=== PATIENT | female | born 1960 | race Caucasian/White ===

== ENCOUNTER 2022-12-28 11:03 | Inpatient (IN) | payer OTHER ==
[~2022-12-28] VITALS: Ht 160 cm; Wt 59.1 kg
[2022-12-28 11:38] LABS: BASOPHILS ABSOLUTE AUTO 0.05 K/mm3 (0.00-0.23); BASOPHILS PERCENT AUTO 0 % (0-2); EOSINOPHILS ABSOLUTE AUTO 0.04 K/mm3 (0.00-0.68); EOSINOPHILS PERCENT AUTO 0 % (0-6); Hematocrit 51.6 % (33.0-51.0); Hemoglobin 16.8 g/dL (11.5-16.0); IMMATURE GRAN ABSOLUTE AUTO 0.09 K/mm3 (0.00-0.10); IMMATURE GRAN PERCENT AUTO 1 % (0-1); LYMPHOCYTES ABSOLUTE AUTO 1.41 K/mm3 (0.84-5.20); LYMPHOCYTES PERCENT AUTO 9 % (21-46); MONOCYTES ABSOLUTE AUTO 1.96 K/mm3 (0.16-1.47); MONOCYTES PERCENT AUTO 12 % (4-13); Mean Corpuscular HGB Conc 32.6 g/dL (31.5-36.5); Mean Corpuscular Volume 89 fL (80-100); Mean Platelet Volume 9.1 fL (9.1-12.4); NEUTROPHILS ABSOLUTE AUTO 12.87 K/mm3 (1.96-9.15); NEUTROPHILS PERCENT AUTO 79 % (41-73); Platelet Count 308 K/mm3 (150-400); RDW Coefficient Variation 13.2 % (11.7-14.2); RDW Standard Deviation 42.8 fL (35.1-46.3); Red Blood Cell Count 5.79 M/mm3 (3.80-5.20); White Blood Cell Count 16.42 K/mm3 (4.00-11.30)
[2022-12-28 11:50] LABS: Albumin, Blood 3.5 g/dL (3.4-5.0); Bilirubin, Total 0.4 mg/dL (0.1-1.0); Bun/Creatinine Ratio 44.6 (12.0-20.0); Creatinine, Blood 0.43 mg/dL (0.40-1.00); Globulin, Blood 3.4 g/dL (2.2-4.0); Potassium, Blood 5.1 mmol/L (3.5-5.5); Total Protein, Blood 6.9 g/dL (6.4-8.2)
[2022-12-28 12:48] LABS: Influenza A, PCR NEGATIVE (NEGATIVE); Influenza B, PCR NEGATIVE (NEGATIVE); Resp Syncytial Virus, PCR NEGATIVE (NEGATIVE); SARS-Cov-2 (COVID-19) PCR, MMC NEGATIVE (NEGATIVE)
[2022-12-28 18:37] LABS: CPK Creatine Kinase 94 U/L (26-193)
--- NOTE | 2022-12-28 21:37 | NUR ---
CALLED PHARMACY I INFORMED PHARMACY THAT THE LOVENOX SHOT WAS NOT GIVEN BY ER OR PREVIOUS SHIFT. I DID INFORM THEM THAT THERE IS ANOTHER LOVENOX SHOT SCHEDULED FOR 0900 HOURS. I ASKED IF IT WAS STILL SAFE TO ADMINISTER THE LOVENOX SHOT AT THIS TIME. THEY RESPONDED THAT IT WAS SAFE AND I SHOULD ADMINISTER THE SHOT.
[2022-12-29 02:28] LABS: BASOPHILS ABSOLUTE AUTO 0.01 K/mm3 (0.00-0.23); BASOPHILS PERCENT AUTO 0 % (0-2); EOSINOPHILS PERCENT AUTO 0 % (0-6); Hematocrit 45.7 % (33.0-51.0); Hemoglobin 15.1 g/dL (11.5-16.0); IMMATURE GRAN ABSOLUTE AUTO 0.05 K/mm3 (0.00-0.10); IMMATURE GRAN PERCENT AUTO 1 % (0-1); LYMPHOCYTES ABSOLUTE AUTO 0.52 K/mm3 (0.84-5.20); LYMPHOCYTES PERCENT AUTO 6 % (21-46); MONOCYTES ABSOLUTE AUTO 1.18 K/mm3 (0.16-1.47); MONOCYTES PERCENT AUTO 14 % (4-13); Mean Corpuscular HGB 29.3 pg (26.0-34.0); Mean Corpuscular Volume 89 fL (80-100); NEUTROPHILS ABSOLUTE AUTO 6.63 K/mm3 (1.96-9.15); NEUTROPHILS PERCENT AUTO 79 % (41-73); Platelet Count 274 K/mm3 (150-400); RDW Coefficient Variation 13.1 % (11.7-14.2); RDW Standard Deviation 42.6 fL (35.1-46.3); Red Blood Cell Count 5.16 M/mm3 (3.80-5.20); White Blood Cell Count 8.39 K/mm3 (4.00-11.30)
[2022-12-29 02:45] LABS: Albumin, Blood 2.9 g/dL (3.4-5.0); Bilirubin, Total 0.3 mg/dL (0.1-1.0); Bun/Creatinine Ratio 40.2 (12.0-20.0); Calcium, Blood 8.4 mg/dL (8.5-10.1); Creatinine, Blood 0.45 mg/dL (0.40-1.00); Potassium, Blood 4.6 mmol/L (3.5-5.5); Total Protein, Blood 5.9 g/dL (6.4-8.2)
--- NOTE | 2022-12-29 04:26 | NUR ---
SHIFT SUMMARY ADMITTED FROM ER ON PREVIOUS SHIFT FOR POSSIBLE CHF/COPD EXACERBATION. FULL CODE. PLAN IS TO [facility] AND RT TX'S ARE SCHEDULED. MONITORING LABS. TELEMETRY: TACHY @ 105 BPM. SHE HAS NOT SOUGHT MEDICAL CARE OF ANY KIND IN TEN YEARS REPORTEDLY, MEDICAL HX IS UNKNOWN. OUTPT DERMATOLOGY PLANNED FOR INVESTIGATION OF SKIN MOLES/MASSES. STANDBY ASSIST TO BSC
--- NOTE | 2022-12-29 13:13 | NUR ---
Patient is sitting on a chair and alert. She tells me about her medical issues and the plan moving forward. She shares about her depression, struggles with fears and self-hatred. We explore sources of value, meaning and purpose. We talk about her Yazidism willie, her family support (out of state) and her need for more positive imput for her life and health. She tells me her desire to stop smoking and her plan to work on this. I normalize her feelings, reinforce helpful attitudes and practices and provide therapeutic listening, gentle enrollment counselor and prayer. Patient responds well and shows signs of an elevated mood and catharsis. I will continue to remain available to patient and family.
--- NOTE | 2022-12-29 17:25 | NUR ---
SHIFT SUMMARY PATIENT DENIES PAIN, NAUSEA, AND SHORTNESS OF BREATH WITH REST. PATIENT REPORTS SHORTNESS OF BREATH WITH ACTIVITY. PATIENT WAS ON 2L, SATURATING AT 99%. ATTEMPTED TO WEAN PATIENT, SATURATIONS ON RA WERE 82%, PATIENT INCREASED TO 1L, SATURATIONS 94%. PATIENT CURRENTLY ON 1L VIA N/C. PATIENT WORKED WITH PT TODAY. PATIENT ALSO WORKED WITH ST, RECOMMENDING MEDS CRUSHED IN APPLESAUCE DUE TO PATIENT INABILITY TO SWALLOW PILLS. PATIENT REPORTS THIS HAS BEEN AN ISSUE HER WHOLE LIFE. PATIENT IS EATING AND DRINKING WELL. DIET CHANGED TO BITE SIZE DUE TO BOTTOM DENTURES NOT BEING WITH HER. ECHO COMPLETE, AWAITING RESULTS. PATIENT IS PLEASANT AND COOPERATIVE WITH CARE.
--- NOTE | 2022-12-30 04:47 | NUR ---
SHIFT SUMMARY 62 YR F ADMITTED ON 12/28/22 FOR CHF/PNA. FULL CODE. NO ACUTE CHANGES THIS SHIFT. PT CALLS APPROPRIATELY FOR ASSISTANCE BUT APPEARS TO BE CONFUSED AT TIMES AND PARANOID ABOUT HER TELE WIRES AND OXYGEN TUBING. SHE IS VERY CAUTIOUS OF TUBES AND WIRING AND IS RELUCTANT TO GET UP FOR FEAR OF "MESSING THEM UP".
[2022-12-30 04:52] LABS: BASOPHILS ABSOLUTE AUTO 0.02 K/mm3 (0.00-0.23); BASOPHILS PERCENT AUTO 0 % (0-2); EOSINOPHILS PERCENT AUTO 1 % (0-6); Hematocrit 46.1 % (33.0-51.0); IMMATURE GRAN ABSOLUTE AUTO 0.05 K/mm3 (0.00-0.10); IMMATURE GRAN PERCENT AUTO 0 % (0-1); LYMPHOCYTES ABSOLUTE AUTO 1.47 K/mm3 (0.84-5.20); LYMPHOCYTES PERCENT AUTO 12 % (21-46); MONOCYTES ABSOLUTE AUTO 1.87 K/mm3 (0.16-1.47); MONOCYTES PERCENT AUTO 16 % (4-13); Mean Corpuscular HGB Conc 32.5 g/dL (31.5-36.5); Mean Corpuscular Volume 89 fL (80-100); Mean Platelet Volume 9.2 fL (9.1-12.4); NEUTROPHILS PERCENT AUTO 70 % (41-73); Platelet Count 268 K/mm3 (150-400); RDW Coefficient Variation 12.9 % (11.7-14.2); RDW Standard Deviation 42.3 fL (35.1-46.3); Red Blood Cell Count 5.17 M/mm3 (3.80-5.20); White Blood Cell Count 11.81 K/mm3 (4.00-11.30)
[2022-12-30 05:18] LABS: Calcium, Blood 8.2 mg/dL (8.5-10.1); Creatinine, Blood 0.46 mg/dL (0.40-1.00); Potassium, Blood 4.3 mmol/L (3.5-5.5)
--- NOTE | 2022-12-30 18:02 | NUR ---
SHIFT SUMMARY: C/O PAIN IN L HIP, RADIATING TO LOW BACK; MEDICATED WITH TYLENOL AND PATIENT WAS ABLE TO SLEEP. VERY ANXIOUS ABOUT EVERYTHING. WEARING O2 @ 1 L/MIN NC. GETTING UP TO BSC WITH MOD ASSIST. ENDORSES BEING CONFUSED ABOUT DIAGNOSES AND NEEDING HELP WITH FINDING PCP AND APPLYING FOR A.
--- NOTE | 2022-12-31 04:24 | NUR ---
SHIFT SUMMARY; NO ACUTE CHANGES OVERNIGHT. THE PT IS AXO X3 AND IS CONFUSED AT TIMES, THE PT IS ANXIOUS ABOUT CARE OFTEN, REQUIRED DIRECTION FREQUENTLY. THE PT IS A 1 ASSIST TO THE BSC. TELE IS IN PLACE, NSR 70-80'S. THE PT IS ON 1-2L NC TO MAINTAIN O2 SATS GREATER THAN 92%. THE PT REQUESTED PRN PAIN MEDICATION ONCE LAST SHIFT FOR LEFT HIP PAIN. CURRENTLY THE PT IS RESTING IN BED WITH THE BED IN THE LOWEST POSITION AND THE CALL LIGHT AT BEDSIDE.
[2022-12-31 06:01] LABS: Bun/Creatinine Ratio 30.3 (12.0-20.0); Calcium, Blood 8.5 mg/dL (8.5-10.1); Creatinine, Blood 0.4 mg/dL (0.40-1.00); Potassium, Blood 4.3 mmol/L (3.5-5.5)
--- NOTE | 2022-12-31 17:47 | NUR ---
SHIFT SUMMARY PT 1 PERSON ASSIST UP TO BSC OR BATHROOM USING FWW. NEEDED REMINDING TO USE CALL BUTTON AND WAIT FOR HELP. CAN BE ANXIOUS DUE TO LL BACK DISCOMFORT WHICH SHE REPORTS IS FROM SCIATIC NERVE. ICE APPLIED OCCASIONALLY FOR COMFORT. ADJUSTED INDEPENDENTLY IN BED. SITTING IN CHAIR FOR MEALS. ENCOURAGED TO KEEP ICE NEARBY FOR KEEP HER MOUTH MOIST.
--- NOTE | 2023-01-01 05:31 | NUR ---
PATIENT IS ALERT AND ORIENTED X4, SOME CONFUSION WHEN ANXIETY INCREASES, BUT SUBSIDES WHEN RELAXED. 3L NC, PRODUCTIVE COUGH, SOB WHEN UP TO BSC, 1X WITH FWW AND CONTACT GUARD. LLE EDEMA 3+, RLE 1-2+, TELE SR, HTN TREATED WITH NEW PRNS AND CARDIAC MEDS ADDED TO JAN. IV SL. NO OTHER ISSUES TO REPORT.
[2023-01-01 05:46] LABS: Bun/Creatinine Ratio 25.1 (12.0-20.0); Calcium, Blood 8.2 mg/dL (8.5-10.1); Creatinine, Blood 0.36 mg/dL (0.40-1.00); Potassium, Blood 4.4 mmol/L (3.5-5.5)
--- NOTE | 2023-01-01 18:02 | NUR ---
SHIFT SUMMARY NO ACUTE CHANGES DURING SHIFT. PT ALERT AND ORIENTED, CALLS APPROPRIATELY. PT PLACED ON 1.5L FLUID RESTRICTION TODAY, PT AWARE. PT DOWN TO 2L NC, ATTEMPTED RA, PT BECAME SOB AND ANXIOUS, WILL KEEP AT 2L FOR NOW. PT X 1 ASSIST FWW AND GAIT BELT TO BATHROOM. BLE EDEMA STILL PRESENT, PO LASIX STARTED. WILL CONTINUE TO MONITOR. CALL LIGHT WITHIN REACH.
--- NOTE | 2023-01-02 06:25 | NUR ---
PATIENT SLEPT FOR SOME OF THE NIGHT, WAKING TO CONFUSION, BUT OTHERSISE RIORIENTS X4. PATIENT CONT TO GET ANXIETY THROUGHIUT THE NIGHT AND STATES SHE JUST NEEDS SOMEONE TO LISTEN TO HER CALMLY. SHE HAS AN ELDERLY MOTHER AT HOME WHICH SHE CARES FOR. NO HTN PRNS NEEDED THIS SHIFT. 2L NC CONTINUED FOR COMFORT AND ANXIETY. EDEMA TO BLE REDUCING SOME. 1X ASSIST WITH FWW TO BSC, GAIT BELT WHEN UP TO BATHROOM. INC/CONT OF URIN. BLAIR BM THIS SHIFT. TELE SR. WILL CONT TO MONITOR.
[2023-01-02 06:35] LABS: Bun/Creatinine Ratio 19.9 (12.0-20.0); Calcium, Blood 8.7 mg/dL (8.5-10.1); Creatinine, Blood 0.35 mg/dL (0.40-1.00); Potassium, Blood 4.5 mmol/L (3.5-5.5)
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
--- NOTE | 2023-01-03 06:02 | NUR ---
HOP STRAINER SUMMARY PT AFFECT REMAINS PERSISTANTLY ANXIOUS/FLAT, EVEN DURING PERIODS OF REST. PT STARTED BEGINNING OF SHIFT ON 2L O2 NC; PERIOD OF SOB; PT UNABLE TO BREATHE THROUGH NOSE. MOVED NC T/MOUTH AND BUMPED UP TO 4L; CALLED RT T/BEDSIDE; PT RCVD TREATMENT. PT REMAINS ON 4L O2. PT 1PA T/BSC. NEW IV PLACED IN LEFT FOREARM. LUNG SOUNDS TIGHT W/EXP WHEEZING. ENCOURAGED PT TO MAKE NEEDS KNOWN AND USE CALL LIGHT; PT EXPRESSED FEAR OF USING CALL LIGHT T/NOT DISRUPT STAFF. CALL LIGHT ACCESSIBLE.
--- NOTE | 2023-01-03 14:49 | NUR ---
DIET CHANGED TO [facility] SOFT/GRD MEAT PER PATIENT REQUEST. INCLUDED FLUID RESTRICTION AND CARDIAC/HEART HEALTH.
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
--- NOTE | 2023-01-03 18:26 | NUR ---
SHIFT SUMMARY: APPEARS DEPRESSED, HAS BEEN WITHDRAWN AND STATED SHE FEELS OVERWHELMED "BY EVERYTHING." STARTED ON CITALOPRAM THIS MORNING. PLACED A PALLIATIVE CARE CONSULT FOR POLST AND/OR ADVANCED DIRECTIVE, WAS SEEN BY Saleem FLORES RN AND PT APPRECIATED HER VISIT. ENCOURAGED HER TO GET OOB, WALK TO BR INSTEAD OF USING BSC, IN CHAIR FOR MEALS. SHE IS UNMOTIVATED AND UNWILLING TO DO THESE THINGS DESPITE EDUCATION THAT SHE WILL CONTINUE TO GET WEAKER BY STAYING IN BED. IF DISCHARGED HOME, THIS AUTHOR FEELS THAT SHE WILL BE RE-ADMITTED TO THE HOSPITAL VERY SHORTLY AFTER. MEDICATED WITH TYLENOL FOR HER BACK PAIN. ON O2 @ 2-4 L/MIN NC. HOME O2 CONSULT COMPLETED ON 01/02/23.
[2023-01-04 02:17] LABS: Source, Urine Voided
[2023-01-04 02:20] LABS: Bilirubin, Urine Neg (Neg); Blood, Urine Neg (Neg); Glucose Qualitative, Urine Neg (Neg); Ketones, Urine 1+ (Neg); Leukocyte Esterase, Urine 1+ (Neg); Nitrite, Urine Neg (Neg); Protein, Urine Neg (Neg); Urobilinogen, Urine NORM (Normal)
[2023-01-04 02:42] LABS: Appearance, Urine Hazy (Clear); Color, Urine Yellow (P-Yellow)
[2023-01-04 02:43] LABS: Amorphous Mod (0-Heavy); Bacteria Few /hpf; Red Blood Cells, Urine Not Seen /hpf (0-2); Squamous Epithelial Cells Mod /hpf (Few)
--- NOTE | 2023-01-04 05:29 | NUR ---
CONSTRUCTION CARPENTER SUMMARY PT CONT TO APPEAR ANXIOUS AND WITHDRAWN. ON 4L 02 NC. DESAT WHEN UP TO BSC. RT AT BEDSIDE F/BREATHING TREATMENT. PT SHOWING INCREASING CONFUSION THIS SHIFT. CALLED THIS RN TO BEDSIDE; PT STATED SHE HEARS PEOPLE TALKING ABOUT "CUTTING HER THROAT" AND "[place] IS COMING FOR HER." ATTEMPT TO REORIENT PT AND SHE STATED "I KNOW WHAT I HEARD"; ALSO SAYING SHE NEEDS TO CALL SOMEONE. PT MADE CALL TO FAMILY MEMBER "JOELLEN" ON PERSONAL CELL PHONE. CALL TO ; ORDER FOR AM LABS, URINE SAMPLE, AND 5MG IM ZYPREZA ONE TIME. PT TOLERATED IM INJECTION WELL AND SLEPT FOR A FEW HOURS. UPON WAKING PT STILL ANXIOUS BUT COOPERATIVE WITH CARE. PT AGREEABLE TO TAKING A SHOWER. PT HAD 900ML URINE, THEN SUBSEQUENT 700ML URINE OUTPUT. WILL CONT TO MONITOR. CALL LIGHT ACCESSIBLE.
[2023-01-04 07:12] LABS: BASOPHILS ABSOLUTE AUTO 0.06 K/mm3 (0.00-0.23); BASOPHILS PERCENT AUTO 1 % (0-2); EOSINOPHILS ABSOLUTE AUTO 0.15 K/mm3 (0.00-0.68); EOSINOPHILS PERCENT AUTO 1 % (0-6); Hematocrit 46.9 % (33.0-51.0); Hemoglobin 15.1 g/dL (11.5-16.0); IMMATURE GRAN ABSOLUTE AUTO 0.04 K/mm3 (0.00-0.10); IMMATURE GRAN PERCENT AUTO 0 % (0-1); LYMPHOCYTES PERCENT AUTO 11 % (21-46); MONOCYTES ABSOLUTE AUTO 1.27 K/mm3 (0.16-1.47); MONOCYTES PERCENT AUTO 12 % (4-13); Mean Corpuscular HGB 28.8 pg (26.0-34.0); Mean Corpuscular HGB Conc 32.2 g/dL (31.5-36.5); Mean Corpuscular Volume 90 fL (80-100); NEUTROPHILS ABSOLUTE AUTO 7.92 K/mm3 (1.96-9.15); NEUTROPHILS PERCENT AUTO 74 % (41-73); Platelet Count 242 K/mm3 (150-400); RDW Standard Deviation 42.5 fL (35.1-46.3); Red Blood Cell Count 5.24 M/mm3 (3.80-5.20); White Blood Cell Count 10.64 K/mm3 (4.00-11.30)
[2023-01-04 07:50] LABS: Bun/Creatinine Ratio 19.4 (12.0-20.0); Calcium, Blood 8.7 mg/dL (8.5-10.1); Creatinine, Blood 0.41 mg/dL (0.40-1.00); Potassium, Blood 4.1 mmol/L (3.5-5.5)
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
--- NOTE | 2023-01-04 19:35 | NUR ---
SHIFT SUMMARY: PT A/O X 4, STANDBY ASSIST WITH WALKER AND GB. PT ON 4 LPM VIA NC. PLEASANT AND COOPERATIVE WITH CARE. PT HAD NO REPORTS OF PAIN. PT BLOOD PRESSURE IN THE 100'S THIS EVENING AND ASYMPTOMATIC. PT UNABLE TO SWALLOW MEDICATIONS THAT CANNOT BE CRUSHED AND CHEWED THEM. DR. FLORES CHANGED TO CRUSHABLE FORM. PT REPORTED SHE WOULD NEED A BSC, WALKER AND OXYGEN FOR HOME IF DISCHARGED HOME. PT HAS FAMILY MEMBER JOELLEN WHO CAN BE A CONTACT. NUMBER ON FRONT OF CHART.
--- NOTE | 2023-01-05 05:12 | NUR ---
SHIFT SUMMARY PT A$O X 4. PLEASANT AND COOPERATIVE WITH CARE. ABLE TO MAKE NEEDS KNOWN. TAKES MEDS CRUSHED IN APPLESAUCE. 4L O2 VIA NC. LIVES ALONE. HAS BEEN RESTING QUIETLY THROUGHOUT MOST OF SHIFT. WILL CONTINUE TO MONITOR AND PROVIDE CARE THROUGHOUT SHIFT.
--- NOTE | 2023-01-05 14:47 | NUR ---
After receiving a request for spiritual care form patient's RN Erum, I visit patient. She tells me about her the guilt that she feels because she thinks that she has failed her family by having to come to the hospital and has been unable to take care of her mother in law. She tells me that she is very anxious and wonders if she is making the wrong decision to go home instead of going to a facility. She does not feel that she will be helpful when she goes home and that she does not want others to have to help her. I attempt to have her reassign meaning to these events, to normalize what she is feeling and to appeal to the Druze beliefs that she stated were core to dealing with challenges. Pt reluctantly moves forward on these concepts but is emotionally overwhelmed and takes things in by small amounts. I provide therapeutic listening, a calming presence and prayer. Patient showed signs of peace being slightly increased.
[2023-01-05] MEDS ORDERED: Calcium Carbon500 MG PO (14:57)
[2023-01-05] MEDS ORDERED: FAMO20 PO (14:58)
[2023-01-05] MEDS ORDERED: SERT50 PO (14:59)
[2023-01-05] MEDS ORDERED: METO25 PO (14:59)
[2023-01-05] MEDS ORDERED: SPIR25 PO (14:59)
[2023-01-05] MEDS ORDERED: ALBU90OI INH (15:06)
[2023-01-05] MEDS ORDERED: FURO20 PO (15:07)
--- NOTE | 2023-01-05 17:05 | NUR ---
DISCHARGE SUMMARY: PT A/O X 4 STANDBY ASSIST TO BATHROOM WITH WALKER. PT BLOOD PRESSURE MUCH IMPROVED AND PT NO LONGER COMPLAINING OF DIZZINESS WITH AMBULATION. PARAMETERS PLACED ON METOPROLOL. PT FAMILY MEMBER NAMED JOELLEN CAME TO [employer] PT AFTER HOME O2 WAS DELIVERED AND SHE HAD PICKED UP PRESCRIPTION MEDICATIONS. PT AND JOELLEN GIVEN DISCHARGE INSTRUCTIONS AND MEDICATION INSTRUCTIONS. PT AND JOELLEN VU. PT ESCORTED TO POV VIA WC BY LUCI.
== END 2023-01-05 16:28 | disposition home health service (06) | DRG 291 ==
LOC: ER 11:03 → MEDS 17:35
PROVIDERS: Internal Medicine; Student in an Organized Health Care Education/Training Program; ADMIT Internal Medicine
DX: I11.0 Hypertensive heart disease with heart failure (principal); J96.21 Acute and chronic respiratory failure with hypoxia; E87.1 Hypo-osmolality and hyponatremia; J20.9 Acute bronchitis, unspecified; I27.81 Cor pulmonale (chronic); I50.811 Acute right heart failure; R13.10 Dysphagia, unspecified; I27.20 Pulmonary hypertension, unspecified; F41.9 Anxiety disorder, unspecified; M54.9 Dorsalgia, unspecified; J43.9 Emphysema, unspecified; M25.552 Pain in left hip; F17.210 Nicotine dependence, cigarettes, uncomplicated; R53.81 Other malaise; R22.0 Localized swelling, mass and lump, head; H10.9 Unspecified conjunctivitis; Z20.822 Contact with and (suspected) exposure to COVID-19; Z88.2 Allergy status to sulfonamides; Z88.8 Allergy status to other drugs, medicaments and biological substances; Z88.1 Allergy status to other antibiotic agents
CPT/HCPCS: 0241U; 36415; 71045; 71260; 80048; 80053; 81001; 82550; 83605; 83880; 83935; 84300; 84443; 84484; 85025; 85379; 87040; 92610; 93005; 93010; 93306; 94640; 94664; 94760; 94761; 96361; 96374-59; 96375-59; 97110; 97116; 97129; 97162; 97166; 97530; 97535; 99285-25; A9270; J0456; J0696; J1650; J1940; J2930; J7030; J7050; Q9967